=== PATIENT | male | born 1950 | race American Indian/Alaskan Native ===

== ENCOUNTER 2021-12-04 08:33 | Outpatient (CLI) | payer MEDICARE ==
--- NOTE | 2021-12-04 11:04 | Cat Scan Report ---
CT ABDOMEN AND PELVIS WITHOUT CONTRAST HISTORY: C61 MALIGNANT NEOPLASM OF PROSTATE COMPARISON: None. TECHNIQUE: Axial CT images were obtained through the abdomen and pelvis without IV contrast. Sagittal and coronal reformatted images. All CT scans at this location are performed using CT dose reduction for ALARA by means of automated exposure control. FINDINGS: CT ABDOMEN: Lung Bases: Clear. Liver: No significant abnormality. Biliary: No significant abnormality. Spleen: No significant abnormality. Unenlarged. Pancreas: No significant abnormality. Adrenals: No significant abnormality. Kidneys: No significant abnormality. Lymphatics: No pathologic adenopathy is detected. Vasculature: No significant abnormality. Bowel/Peritoneum: No significant abnormality. No free air. No free fluid. CT PELVIS: : The prostate gland is moderately enlarged and indents the bladder base. There is diffuse thickeni ng of the bladder wall consistent with trabeculation. Osseous Structures: Osteopenia is evident. There are mild to moderate degenerative changes in the tho racolumbar spine. 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 Chronic superior endplate deformity versus morals node is noted at L5. No suspicious bony lesion is detected. Additional Findings: None IMPRESSION: No evidence for metastatic disease to the abdomen or pelvis. Prostatomegaly. Trabeculation of the bladder wall. Chronic osseous findings as described. Signer Name: Anish Butler Jr, MD Signed: 12/04/2021 11:00 AM Workstation Name: [id number]
--- NOTE | 2021-12-04 14:01 | Nuclear Medicine Report ---
NUCLEAR MEDICINE BONE SCAN, WHOLE BODY INDICATION: C61 MALIGNANT NEOPLASM OF PROSTATE. TECHNIQUE: 26.7 mCi of Tc-99m MDP were injected IV. Whole body images were obtained. COMPARISON: CT abdomen pelvis without contrast performed the same day. FINDINGS: Skeletal Structures: Fairly symmetric, likely degenerative uptake is present involving the sternocla vicular joints, shoulders, thoracic spine, left hip and knees.. Skeletal Lesions: None. Soft Tissues: Normal. Kidneys: Normal, symmetric activity. Additional Findings: Focal uptake in the right side of the mandible is likely related to periodontal disease.. IMPRESSION: No evidence for osseous metastatic disease. Degenerative findings as described.. Signer Name: Anish Butler Jr, MD Signed: 12/04/2021 1:56 PM Workstation Name: [id number]
== END 2021-12-04 08:34 | disposition home or self-care (01) ==
LOC: NM 08:33
PROVIDERS: ATTEND Urology
DX: C61 Malignant neoplasm of prostate (principal); N40.0 Benign prostatic hyperplasia without lower urinary tract symptoms; M85.88 Other specified disorders of bone density and structure, other site; M47.815 Spondylosis without myelopathy or radiculopathy, thoracolumbar region
CPT/HCPCS: 74176; 78306; A9503